=== PATIENT | female | born 1935 | race Caucasian/White ===

== ENCOUNTER → 2016-10-31 | Outpatient (CLI) | payer MEDICARE ==
--- NOTE | 2016-11-01 10:10 | MM ---
Reason for exam: screening (asymptomatic). Last mammogram was performed 1 year and 3 months ago. History: Patient is postmenopausal and history of other cancer. Cyst aspiration of the left breast, 1960. Took estrogen for 10 years beginning at age 56. Physical Findings: A clinical breast exam by your physician is recommended on an annual basis and results should be correlated with mammographic findings. MG Screening Mammo w CAD Bilateral CC and MLO view(s) were taken. Prior study comparison: August 04, 2015, right breast MG 3d work up w/cad RT. July 24, 2015, bilateral MG screening mammo w CAD. There are scattered fibroglandular densities. No significant changes when compared with prior studies. ASSESSMENT: Benign, BI-RAD 2 RECOMMENDATION: Routine screening mammogram of both breasts in 1 year.
== END | disposition home or self-care (01) ==
LOC: RADMAMWWP 07:34
PROVIDERS: ATTEND Obstetrics & Gynecology
DX: Z12.31 Encounter for screening mammogram for malignant neoplasm of breast (principal)

== ENCOUNTER → 2016-11-19 | Outpatient (CLI) | payer MEDICARE ==
--- NOTE | 2016-11-19 15:23 | US ---
EXAMINATION TYPE: US carotid duplex BILAT DATE OF EXAM: 11/19/2016 2:50 PM COMPARISON: NONE CLINICAL HISTORY: R55 syncope. EXAM MEASUREMENTS: RIGHT: Peak Systolic Velocity (PSV) cm/sec ----- Right CCA: 96.8 ----- Right ICA: 75.3 ----- Right ECA: 96.8 ICA/CCA ratio: 0.8 RIGHT: End Diastole cm/sec ----- Right CCA: 27.3 ----- Right ICA: 25.2 ----- Right ECA: 8.1 LEFT: Peak Systolic Velocity (PSV) cm/sec ----- Left CCA: 98.0 ----- Left ICA: 109.4 ----- Left ECA: 90.4 ICA/CCA ratio: 1.1 LEFT: End Diastole cm/sec ----- Left CCA: 24.8 ----- Left ICA: 27.3 ----- Left ECA: 10.9 VERTEBRALS (direction of flow): Right Vertebral: Antegrade Left Vertebral: Antegrade TECHNOLOGIST IMPRESSION: Tortuous proximal CCA noted bilaterally. Mild to moderate intimal wall kumar ges are noted at bilateral carotid bifurcation , but PSV is wnl. Grayscale images show mild eccentric plaque at bilateral carotid bulbs. Velocity measurements and rat ios are within normal limits in visualized portion of both internal carotid arteries. IMPRESSION: No hemodynamically significant stenosis identified in either internal carotid artery.
--- NOTE | 2016-11-20 11:03 | ECHOF ---
Referral Reason:R55 syncope MEASUREMENTS -------- HEIGHT: 149.9 cm WEIGHT: 63.5 kg BP: 190/81 RVIDd: 2.8 cm (< 3.3) IVSd: 1.1 cm (0.6 - 1.1) LVIDd: 3.7 cm (3.9 - 5.3) LVPWd: 1.1 cm (0.6 - 1.1) IVSs: 1.6 cm LVIDs: 2.5 cm LVPWs: 1.5 cm LA Diam: 3.5 cm (2.7 - 3.8) LAESV Index (A-L): 30.98 ml/m Ao Diam: 3.1 cm (2.0 - 3.7) AV Cusp: 1.5 cm (1.5 - 2.6) MV EXCURSION: 9.414 mm (> 18.000) MV EF SLOPE: 46 mm/s (70 - 150) EPSS: 0.5 cm MV E Benito: 1.04 m/s MV DecT: 241 ms MV A Benito: 1.22 m/s MV E/A Ratio: 0.85 AV maxP.63 mmHg AV meanP.48 mmHg RAP: 5.00 mmHg RVSP: 40.01 mmHg FINDINGS -------- Sinus rhythm. This was a technically good study. The left ventricular size is normal. There is borderline concentric left ventricular hypertrophy. Overall left ventricular systolic function is normal with, an EF between 60 - 65 %. The right ventricle is normal in size and function. LA is midly dilated 29-33ml/m2. The right atrium is normal in size. Aortic valve is trileaflet and is moderately thickened. Trace amount of aortic regurgitation. Peak/mean gradient across the Aortic Valve is 11.63mmHg / 6.48mmHg. The mitral valve leaflets are mildly thickened. Mild mitral annular calcification present. Mild mitral regurgitation is present. Mild tricuspid regurgitation present. There is mild pulmonary hypertension. The right ventricular systolic pressure, as measured by Doppler, is 40.01mmHg. Trace/mild (physiologic) pulmonic regurgitation. The aortic root size is normal. Normal inferior vena cava with normal inspiratory collapse consistent with estimated right atrial pressure of 5 mmHg. There is no pericardial effusion. CONCLUSIONS -------- 1. Sinus rhythm. 2. Trace amount of aortic regurgitation. 3. Peak/mean gradient across the Aortic Valve is 11.63mmHg / 6.48mmHg. 4. The mitral valve leaflets are mildly thickened. 5. Mild mitral annular calcification present. 6. Mild mitral regurgitation is present. 7. Mild tricuspid regurgitation present. 8. There is mild pulmonary hypertension. 9. The right ventricular systolic pressure, as measured by Doppler, is 40.01mmHg. 10. Trace/mild (physiologic) pulmonic regurgitation. 11. The aortic root size is normal. 12. This was a technically good study. 13. Normal inferior vena cava with normal inspiratory collapse consistent with estimated right atrial pressure of 5 mmHg. 14. There is no pericardial effusion. 15. The left ventricular size is normal. 16. There is borderline concentric left ventricular hypertrophy. 17. Overall left ventricular systolic function is normal with, an EF between 60 - 65 %. 18. The right ventricle is normal in size and function. 19. LA is midly dilated 29-33ml/m2. 20. The right atrium is normal in size. 21. Aortic valve is trileaflet and is moderately thickened. SOLDERER ASSEMBLER: Zuleika Jay RDCS
== END | disposition home or self-care (01) ==
LOC: RADECHMAIN 13:37
PROVIDERS: ATTEND Family Medicine
DX: I08.8 Other rheumatic multiple valve diseases (principal); I27.2 Other secondary pulmonary hypertension
CPT/HCPCS: 93306; 93880

== ENCOUNTER → 2018-02-03 | Outpatient (CLI) | payer MEDICARE ==
--- NOTE | 2018-02-03 15:41 | BD ---
EXAMINATION TYPE: MG DEXA axial skeleton. DATE OF EXAM: 02/03/2018 CLINICAL HISTORY:M81.0 Osteoporosis Height: 58 inches Weight: 146 FRAX RISK QUESTIONS: Alcohol (3 or more units per day): no Family History (Parent hip fracture): no Glucocorticoids (More than 3mos): no (Ex: prednisone, prednisolone, methylprednisolone, dexamethasone, and hydrocortisone). History of Fracture in Adulthood: no Secondary Osteoporosis: 1. Type 1 Diabetes: no 2. Hyperthyroidism: no 3. Menopause before 45: no 4. Malnutrition: no 5. Chronic liver disease: no Rheumatoid Arthritis: no Current Tobacco Use: no RISK FACTORS HISTORY OF: Family History of Osteoporosis: no Active: yes Diet low in dairy products/other sources of calcium: no Postmenopausal woman: yes Take estrogen and/or progesterone medications: not now How long: age [age] Lost more than 2 inches in height since high school: yes Frequent falls: no Poor Health: no Hyperparathyroidism: no Adrenal Insufficiency: no MEDICATIONS: Prednisone or other steroids: no Thyroid Medications: no Osteoporosis Medications: no Additional Medications: blood pressure meds, cholesterol meds, multivitamin Additional History: knee surgery EXAM MEASUREMENTS: Bone mineral densitometry was performed using the [employer] System. Bone mineral density as measured about the Lumbar spine is: ----- L1-L4(G/cm2): 1.464 T Score Values are as follows: ----- L2: 2.0 ----- L3: 3.3 ----- L4: 2.8 ----- L1-L4: 2.4 Bone mineral density has: Decreased -3.0% since study of: 04/21/2013 Bone mineral density about the R hip (g/cm2): 0.951 Bone mineral density about the L hip (g/cm2): 0.979 T Score values are as follows: -----R Neck: -0.6 -----L Neck: -0.4 -----R Total: -0.2 -----L Total: -0.1 Bone mineral density has: Decreased -1.8% since study of: 04/21/2013 IMPRESSION: No evidence for osteoporosis or osteopenia. NOTE: T-SCORE=SD OF THE YOUNG ADULT MEAN.
--- NOTE | 2018-02-04 12:03 | MM ---
Reason for exam: screening (asymptomatic). Last mammogram was performed 1 year and 3 months ago. History: Patient is postmenopausal and history of other cancer. Cyst aspiration of the left breast, 1960. Took estrogen for 10 years beginning at age 56. Physical Findings: A clinical breast exam by your physician is recommended on an annual basis and results should be correlated with mammographic findings. MG 3D Screening Mammo W/Cad Bilateral CC and MLO view(s) were taken. Prior study comparison: October 31, 2016, bilateral MG screening mammo w CAD. August 04, 2015, right breast MG 3d work up w/cad RT. The breast tissue is heterogeneously dense. This may lower the sensitivity of mammography. Finding #1: There is a stable 3 mm mass in the upper inner quadrant of the right breast dating back to 2014 at middle depth. Finding #2: There are typically benign calcifications in both breasts. No suspicious abnormality. No significant changes in finding since October 31, 2016 and August 04, 2015. ASSESSMENT: Benign, BI-RAD 2 RECOMMENDATION: Routine screening mammogram of both breasts in 1 year.
== END | disposition home or self-care (01) ==
LOC: RADMAMWWP 08:00
PROVIDERS: ATTEND Obstetrics & Gynecology
DX: Z12.31 Encounter for screening mammogram for malignant neoplasm of breast (principal); Z13.820 Encounter for screening for osteoporosis
CPT/HCPCS: 77063; 77067; 77080

== ENCOUNTER → 2018-07-20 | Outpatient (CLI) | payer MEDICARE ==
[2018-07-20 11:01] LABS: Basophils # (A) 0.1 k/uL (0-0.2); Basophils % (A) 1 %; Eosinophils # (A) 0.2 k/uL (0-0.7); Eosinophils % (A) 3 %; HCT 40.9 % (34.0-46.0); HGB 13.7 gm/dL (11.4-16.0); Lymphocytes # (A) 1.2 k/uL (1.0-4.8); Lymphocytes % (A) 22 %; MCH 28.3 pg (25.0-35.0); MCHC 33.5 g/dL (31.0-37.0); MCV 84.6 fL (80.0-100.0); Mean Platelet Volume 7.3; Monocytes # (A) 0.3 k/uL (0-1.0); Monocytes % (A) 6 %; Neutrophils # (A) 3.8 k/uL (1.3-7.7); Neutrophils % (A) 67 %; Platelet Count 288 k/uL (150-450); RBC 4.83 m/uL (3.80-5.40); RDW 14.1 % (11.5-15.5); WBC 5.7 k/uL (3.8-10.6)
[2018-07-20 11:25] LABS: ALT 11 U/L (9-52); AST 25 U/L (14-36); Albumin 4.3 g/dL (3.5-5.0); Alkaline Phosphatase 118 U/L (38-126); Anion Gap 10 mmol/L; Blood Urea Nitrogen 19 mg/dL (7-17); Carbon Dioxide 26 mmol/L (22-30); Chloride 107 mmol/L (98-107); Cholesterol 212 mg/dL (<200); Glucose 88 mg/dL (74-99); HDL Cholesterol 65 mg/dL (40-60); LDL Cholesterol,Calculated 124 mg/dL (0-99); Potassium 4.5 mmol/L (3.5-5.1); Sodium 143 mmol/L (137-145); Total Bilirubin 0.5 mg/dL (0.2-1.3); Total Protein 7.6 g/dL (6.3-8.2); Triglycerides 115 mg/dL (<150)
[2018-07-20 11:33] LABS: T4, Free (Free Thyroxine) 1.03 ng/dL (0.78-2.19)
== END | disposition home or self-care (01) ==
LOC: LABWHC1 09:15
PROVIDERS: ATTEND Nurse Practitioner Family
DX: Z00.00 Encounter for general adult medical examination without abnormal findings (principal); E78.5 Hyperlipidemia, unspecified; I10 Essential (primary) hypertension
CPT/HCPCS: 36415; 80053; 80061; 84439; 84443; 85025

== ENCOUNTER → 2019-02-04 | Outpatient (CLI) | payer MEDICARE ==
--- NOTE | 2019-02-04 13:56 | ECHOF ---
Referral Reason:R01.0 cardiac murmur MEASUREMENTS -------- HEIGHT: 147.3 cm WEIGHT: 65.8 kg BP: 146/60 RVIDd: 3.0 cm (< 3.3) IVSd: 1.1 cm (0.6 - 1.1) LVIDd: 3.5 cm (3.9 - 5.3) LVPWd: 1.2 cm (0.6 - 1.1) IVSs: 1.6 cm LVIDs: 2.3 cm LVPWs: 1.6 cm LA Diam: 3.5 cm (2.7 - 3.8) LAESV Index (A-L): 29.31 ml/m Ao Diam: 2.7 cm (2.0 - 3.7) AV Cusp: 1.2 cm (1.5 - 2.6) EPSS: 0.3 cm MV E Benito: 0.89 m/s MV DecT: 292 ms MV A Benito: 1.12 m/s MV E/A Ratio: 0.80 AV maxP.40 mmHg AV maxP.40 mmHg AV meanP.44 mmHg RAP: 5.00 mmHg RVSP: 36.35 mmHg MV EF SLOPE: 70.50 mm/s (70 - 150) MV EXCURSION: 1.69 cm (> 18.000) FINDINGS -------- Sinus rhythm. This was a technically good study. The left ventricular size is normal. There is borderline concentric left ventricular hypertrophy. Overall left ventricular systolic function is normal with, an EF between 60 - 65 %. The right ventricle is normal in size. LA is midly dilated 29-33ml/m2. The right atrium is normal in size. There is moderate aortic valve sclerosis. Trace to mild aortic regurgitation. There is mild aorti c stenosis present. The mitral valve leaflets are mildly thickened. Moderate mitral annular calcification present. T he peak and mean MV gradients are {MV maxPG} {MV meanPG} as measured by doppler. Mild tricuspid regurgitation present. There is mild pulmonary hypertension. The right ventricular systolic pressure, as measured by Doppler, is 36.35mmHg. Trace/mild (physiologic) pulmonic regurgitation. The aortic root size is normal. Normal inferior vena cava with normal inspiratory collapse consistent with estimated right atrial pre ssure of 5 mmHg. There is no pericardial effusion. CONCLUSIONS -------- 1. Sinus rhythm. 2. This was a technically good study. 3. The left ventricular size is normal. 4. There is borderline concentric left ventricular hypertrophy. 5. Overall left ventricular systolic function is normal with, an EF between 60 - 65 %. 6. The right ventricle is normal in size. 7. LA is midly dilated 29-33ml/m2. 8. The right atrium is normal in size. 9. There is moderate aortic valve sclerosis. 10. Trace to mild aortic regurgitation. 11. There is mild aortic stenosis present. 12. The mitral valve leaflets are mildly thickened. 13. Moderate mitral annular calcification present. 14. The peak and mean MV gradients are {MV maxPG} {MV meanPG} as measured by doppler. 15. Mild tricuspid regurgitation present. 16. There is mild pulmonary hypertension. 17. The right ventricular systolic pressure, as measured by Doppler, is 36.35mmHg. 18. Trace/mild (physiologic) pulmonic regurgitation. 19. The aortic root size is normal. 20. Normal inferior vena cava with normal inspiratory collapse consistent with estimated right atrial pressure of 5 mmHg. 21. There is no pericardial effusion. PAYROLL AUDITOR: DANISHA Twiari
== END | disposition home or self-care (01) ==
LOC: RADUSWWP 10:14
PROVIDERS: ATTEND Family Medicine
DX: I08.8 Other rheumatic multiple valve diseases (principal); I27.20 Pulmonary hypertension, unspecified; I70.213 Atherosclerosis of native arteries of extremities with intermittent claudication, bilateral legs
CPT/HCPCS: 93306; 93922

== ENCOUNTER → 2021-08-16 | Outpatient (CLI) | payer MEDICARE ==
--- NOTE | 2021-08-16 12:06 | CT ---
EXAMINATION TYPE: CT lumbar spine wo con, CT pelvis wo con DATE OF EXAM: 08/16/2021 11:06 AM COMPARISON: None. HISTORY: Pain lumbar and pelvic in particular coccyx pain CT DLP: 658.8 mGycm Automated exposure control for dose reduction was used. Unenhanced CT of the lumbar spine and pelvis are performed. Bone and soft tissue window settings are submitted as well as coronal and sagittal reconstructions. There are 5 lumbar type vertebra. [place] osseous structures are demineralized. There is grade 1 retro listhesis of L1 on L2. There is grade 1 anterolisthesis of L5 on S1. Vertebral body heights are prese rved. Vaqbkfrh-ru-jocwhu multilevel anterior lateral spurring. There is levoconvex scoliosis centered at L4 level. Moderate to severe multilevel disc space narrowing. Posterior spur disc complexes effac e the anterior thecal sac at all levels on sagittal images. Axial images L2-L3 level show moderate broad-based posterior disc protrusion and spurring along with mild facet arthropathy causing mild left greater than right neural foraminal narrowing. Axial images at L3-L4 level show moderate to advanced facet arthropathy effacing posterior lateral th ecal sac. There is moderate broad-based disc bulge effacing the anterior thecal sac. There is moderat e bilateral neural foraminal narrowing. Axial images at the L4-L5 level show moderate to advanced right and mild to moderate left facet arthr opathy. There is broad disc bulge with right lateral disc protrusion component. There is mild left an d moderate to severe right-sided neural foraminal narrowing. Axial images at L5-S1 level show moderate to advanced facet arthropathy bilaterally. There is broad-b ased right foraminal/extraforaminal disc protrusion axial image 53 likely effacing right L5 nerve sag ittal image 20. There is effacement of the anterior and posterior lateral thecal sac due to spondylol isthesis. There is igmwnqrk-[id number] left-sided neural foraminal narrowing sagittal image 35. There is bilateral calcifications likely nephrolithiasis, largest 5 mm mid to lower pole right kidney coronal image 29. Images of the pelvis show moderate axial joint space loss and moderate head neck collar spurring in b oth hips. Demineralization is present. Sacroiliac joints are symmetric and well within normal limits. Pubic symphysis shows mild spurring and mild to moderate narrowing. Sacrum and coccyx appear within normal limits. No acute fracture is evident. Some diverticula in the sigmoid colon. Anteverted uterus with scattered pelvic phleboliths. Partial v isualization of coils in the anterior abdominal wall from ventral wall hernia repair surgery. Surgica l sutures in bowel loops right lower quadrant are noted. 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 No suspicious acute findings in the pelvis.
== END | disposition home or self-care (01) ==
LOC: RADCTMAIN 10:40
PROVIDERS: ATTEND Family Medicine
DX: M53.3 Sacrococcygeal disorders, not elsewhere classified (principal); M54.50 Low back pain, unspecified
CPT/HCPCS: 72131; 72192

== ENCOUNTER 2024-11-16 08:53 | Emergency (ER) | payer MEDICARE ==
[2024-11-16 09:00] VITALS: RESP 18
--- NOTE | 2024-11-16 09:40 | ED ---
Head Injury HPI - General Chief complaint: Head Injury Stated complaint: Fall, head injury Time Seen by Provider: 11/16/24 08:59 Source: patient, family, RN notes reviewed Mode of arrival: wheelchair Limitations: no limitations - History of Present Illness Initial comments: 89-year-old female presents emerged from chief complaint of slip and fall, head injury. Patient states she got out of the vehicle slipped on ice striking her head. She states that she did strike the ground but has minimal headache denies any blood thinners denies any neck pain no back pain. Patient states that she did need help getting up but that is due to a bad knee. She denies any extremity injuries. - Related Data Home Medications Medication Instructions Recorded Confirmed Lisinopril/Hydrochlorothiazide 1 tab PO QAM 08/22/14 09/22/14 [Lisinopril-Hctz 20-12.5 mg Tab] Metoprolol Tartrate [Lopressor] 50 mg PO QAM 08/22/14 09/22/14 Simvastatin 80 mg PO DAILY 08/22/14 09/22/14 Omeprazole 40 mg PO AC-BRKFST 09/20/14 09/22/14 gemfibroziL [Gemfibrozil] 600 mg PO DAILY 09/20/14 09/22/14 Previous Rx's Medication Instructions Recorded HYDROcodone/APAP 7.5-325MG [[facility] 1 each PO Q4H PRN #60 tab 09/22/14 7.5] Allergies/Adverse reactions: Allergies Allergy/AdvReac Type Severity Reaction Status Date / Time No Known Allergies Allergy Verified 11/16/24 09:00 Review of Systems ROS Statement: Those systems with pertinent positive or pertinent negative responses have been documented in the HPI. ROS Other: All systems not noted in ROS Statement are negative. Past Medical History Past Medical History: Hyperlipidemia, Hypertension History of Any Multi-Drug Resistant Organisms: None Reported Past Surgical History: Bowel Resection, Section, Orthopedic Surgery Additional Past Surgical History / Comment(s): x 3, bowel resection 2 years ago, knee replacement 4 years ago Past Anesthesia/Blood Transfusion Reactions: No Reported Reaction Past Psychological History: Anxiety Smoking Status: Never smoker Past Alcohol Use History: None Reported Past Drug Use History: None Reported General Exam Limitations: no limitations General appearance: alert, in no apparent distress Head exam: Present: atraumatic, normocephalic, normal inspection Eye exam: Present: normal appearance, PERRL, EOMI. Absent: scleral icterus, conjunctival injection, periorbital swelling ENT exam: Present: normal exam, normal oropharynx, mucous membranes moist Neck exam: Present: normal inspection, full ROM. Absent: tenderness, meningismus, lymphadenopathy Respiratory exam: Present: normal lung sounds bilaterally. Absent: respiratory distress, wheezes, rales, rhonchi, stridor Cardiovascular Exam: Present: regular rate, normal rhythm, normal heart sounds. Absent: systolic murmur, diastolic murmur, rubs, gallop, clicks GI/Abdominal exam: Present: soft, normal bowel sounds. Absent: distended, tenderness, guarding, rebound, rigid Neurological exam: Present: alert, oriented X3, CN II-XII intact, reflexes normal. Absent: motor sensory deficit Course Vital Signs 11/16/24 11/16/24 08:54 10:06 Temperature 97.8 F 97.9 F Pulse Rate 79 77 Respiratory 18 18 Rate Blood Pressure 150/67 145/71 O2 Sat by Pulse 100 100 Oximetry Medical Decision Making - Medical Decision Making Was pt. sent in by a medical professional or institution (, PA, CHILD THERAPIST, urgent care, hospital, or long-term...) When possible be specific @ -No Did you speak to anyone other than the patient for history (EMS, parent, family, police, friend...)? What history was obtained from this source @ -No Did you review nursing and triage notes (agree or disagree)? Why? @ -I reviewed and agree with nursing and triage notes Were old charts reviewed (outside hosp., previous admission, EMS record, old EKG, old radiological studies, urgent care reports/EKG's, long-term records)? Report findings @ -No old charts were reviewed Differential Diagnosis (chest pain, altered mental status, abdominal pain women, abdominal pain men, vaginal bleeding, weakness, fever, dyspnea, syncope, headache, dizziness, GI bleed, back pain, seizure, CVA, palpatations, mental health, musculoskeletal)? @ -Differential Headache: Migraine, tension, cluster, carbon monoxide, central venous thrombosis, pension karma temporal arteritis, acute closure glaucoma, intercranial hemorrhage, mastoiditis, sinusitis, head injury, this is not meant to be an all-inclusive list. EKG interpreted by me (3pts min.). @ -None X-rays interpreted by me (1pt min.). @ -None done CT interpreted by me (1pt min.). @ -CT brain, C-spine showing no acute intracranial hemorrhage no cervical fracture U/S interpreted by me (1pt. min.). @ -None done What testing was considered but not performed or refused? (CT, X-rays, U/S, lab s)? Why? @ -None What meds were considered but not given or refused? Why? @ -None Did you discuss the management of the patient with other professionals (professionals i.e. DrHilario, PA, CHILD THERAPIST, lab, RT, psych nurse, high school social studies tutor, restrooms or lounges maid, teacher, community service officer, case finisher)? Give summary @ -No Was smoking cessation discussed for >3mins.? @ -No Was critical care preformed (if so, how long)? @ -No Were there social determinants of health that impacted care today? How? (Homelessness, low income, unemployed, alcoholism, drug addiction, transportation, low edu. Level, literacy, decrease access to med. care, shelter, rehab)? @ -No Was there de-escalation of care discussed even if they declined (Discuss DNR or withdrawal of care, Hospice)? DNR status @ -No What co-morbidities impacted this encounter? (DM, HTN, Smoking, COPD, CAD, Cancer, CVA, ARF, Chemo, Hep., AIDS, mental health diagnosis, sleep apnea, morbid obesity)? @ -None Was patient admitted / discharged? Hospital course, mention meds given and route, prescriptions, significant lab abnormalities, going to OR and other pertinent info. @ -Discharge patient presented for head injury patient has no acute findings. Patient discharged in stable condition return parameters discussed. Undiagnosed new problem with uncertain prognosis? @ -No Drug Therapy requiring intensive monitoring for toxicity (Heparin, Nitro, Insulin, Cardizem)? @ -No Were any procedures done? @ -No Diagnosis/symptom? @ -Close head injury, slip and fall Acute, or Chronic, or Acute on Chronic? @ -Acute Uncomplicated (without systemic symptoms) or Complicated (systemic symptoms)? @ -uncomplicated Side effects of treatment? @ -No Exacerbation, Progression, or Severe Exacerbation? @ -No Poses a threat to life or bodily function? How? (Chest pain, [place], [place], pneumonia, PE, COPD, DKA, ARF, appy, cholecystitis, CVA, Diverticulitis, Homicidal, Suicidal, threat to staff... and all critical care pts) @ -No Disposition Clinical Impression: Fall, Closed head injury Disposition: HOME SELF-CARE Condition: Stable Instructions (If sedation given, give patient instructions): Head Injury (ED) Additional Instructions: Please return to the Emergency Department if symptoms worsen or any other concerns. Is patient prescribed a controlled substance at d/c from ED?: No Referrals: Aries Rae Jr, DO [Primary Care Provider] - 1-2 days Time of Disposition: 10:02
--- NOTE | 2024-11-16 10:00 | CT ---
EXAMINATION TYPE: CT brain michael wo con DATE OF EXAM: 11/16/2024 9:54 AM COMPARISON: None. CLINICAL INDICATION: Female, 89 years old with history of pain, FALL, PAIN POSTERIOR HEAD, pain TECHNIQUE: CT of the brain is performed utilizing 3 mm thick sections through the posterior fossa and 3 mm thick sections through the remaining calvarium. Study is performed within 24 hours of arrival to the hospital. Contrast used: mL of , (none if empty) CT DLP: 1299.4 mGycm, Automated exposure control for dose reduction was used. FINDINGS: No abnormal hyperdensity is present to suggest an acute intracranial hemorrhage. No mass lesion is evident. No acute infarcts are evident. Mild periventricular white matter hypodensity is present, likely on t he basis of chronic white matter ischemic changes. Ventricles and sulci are appropriate for the patient age. Paranasal sinuses and mastoid air cells within the irafz-hx-skyb are clear. IMPRESSIONS: 1. No acute intracranial process. Follow-up MRI can be performed as clinically indicated. 2. Mild chronic appearing periventricular white matter ischemic type changes CT cervical spine. COMPARISON: None TECHNIQUE: CT of the cervical spine is performed in the axial plane at 2 mm thick sections. Reconstr ucted images in the coronal, and sagittal plane are reviewed on the computer. FINDINGS: No acute fractures are evident. Vertebral body alignment is normal. Disc space narrowing is present throughout the cervical spine. Vertebral body heights are preserved. No spinal canal stenosis is evident. Posterior endplate spurring is present C3-4, C4-5, C5-6. Uncovertebral joint disease contributing to bilateral foraminal narrowing C4-5, C5-6 IMPRESSION: 1. Degenerative disc changes throughout cervical spine. 2. Foraminal narrowing predominantly at C4-5 C5-6. [facility], , 11/16/2024 9:57 AM
[2024-11-16 10:07] VITALS: BP 145/71; PULSE 77; TEMP 97.9
== END 2024-11-16 10:10 | disposition home or self-care (01) ==
LOC: EC 08:53
DX: S09.90XA Unspecified injury of head, initial encounter (principal); W00.0XXA Fall on same level due to ice and snow, initial encounter
CPT/HCPCS: 70450; 72125; 99283